=== PATIENT | male | born 1955 | race African-American/Black ===

== ENCOUNTER 2024-07-16 06:39 | Day surgery (SDC) | payer BC ==
[2024-07-04 11:33] LABS: PT Prothrombin Time 11.2 SECONDS (10-13.0); Protime INR 0.98
[2024-07-04 11:35] LABS: Specific Gravity 1.008 (1.005-1.030); Sqamous Epithelial None Seen /HPF (None Seen); Urine Bacteria None Seen /HPF (<20); Urine Bilirubin NEGATIVE (Negative); Urine Blood Trace (Negative); Urine Clarity Clear (Clear); Urine Color Colorless (Yellow); Urine Culture Reflex Order REFLEXED; Urine Glucose NEGATIVE (Negative); Urine Ketones NEGATIVE (Negative); Urine Microscopic Reflex YN ORDER UMIC; Urine Nitrite NEGATIVE (Negative); Urine Protein NEGATIVE (Negative); Urine RBC <5 /HPF (None Seen); Urine Urobilinogen Normal (Normal); Urine WBC <5 /HPF (<5); Urine pH 6.5 (5.0-7.0)
--- NOTE | 2024-07-04 11:58 | RAD REPORT ---
Procedure: Chest Pa And Lat (2 Views) HISTORY: Preop COMPARISON: none FINDINGS: The lungs appear clear of acute infiltrate. No significant pleural effusion noted. The heart is normal size. IMPRESSION: No acute abnormality is displayed.
--- NOTE | 2024-07-04 12:08 | EKG ---
Test Date: 2024-07-04 Test Time: 10:57:48 [employer]: LEAH MEASUREMENT RESULTS: Intervals: Rate: 51 GA: 174 QRSD: 86 QT: 414 QTc: 381 Gregory: P: 69 GA: 174 QRS: 39 T: 54 INTERPRETIVE STATEMENTS: Sinus bradycardia with sinus arrhythmia Possible Left atrial enlargement Borderline ECG Compared to ECG 06/08/1993 17:06:00 No significant changes Electronically Signed On 07-04-24 12:07:52 CDT by Octavio Riley
[2024-07-16] MEDS ORDERED: Ringers Lactate 1,000 ML IV ONE (07:01)
[2024-07-16] MEDS ORDERED: ONDANSETRON 4 MG/2 ML VIAL ONE (07:51)
[2024-07-16] MEDS ORDERED: FENTANYL CITR 100 MCG/2 ML ONE (07:51)
[2024-07-16] MEDS ORDERED: LIDOCAINE 1% MPF 5 ML VIAL ONE (07:51)
[2024-07-16] MEDS ORDERED: propofoL 200 MG/20 ML VIAL IV ONE (07:51)
[2024-07-16 08:19] VITALS: BP 182/86; TEMP 97.4; O2SAT 99
== END 2024-07-16 08:20 | disposition home or self-care (01) ==
LOC: OR 06:39
PROVIDERS: ATTEND Urology
DX: N40.1 Benign prostatic hyperplasia with lower urinary tract symptoms (principal); C61 Malignant neoplasm of prostate; Z53.8 Procedure and treatment not carried out for other reasons; Z91.148 Patient's other noncompliance with medication regimen for other reason
CPT/HCPCS: 93005; 87088; 81001; 87086; 36415; 85610; 87077; 87186; 71046; J7120; J2003; J2405; J2704; J3010